=== PATIENT | male | born 1950 | race Caucasian/White ===

== ENCOUNTER 2017-04-14 14:38 | Observation (INO) | payer OTHER, MEDICAID ==
--- NOTE | 2017-04-14 15:01 | DR.GENAD ---
HPI - PCP Primary Care Physician: rebecca - Complaint/Symptoms Chief Complaint Doctors Comments: Patient presents with complaint of burning of chest (chest pain) burning of the upper extremity (pain) and back. He states that he took one NTG with some relief but the pain is still a 10. He admits to cardiac surgery with stents x 6, abdominal aortic artery surgery, left carotid surgery. He has atherosclerotic heart disease. Chief Complaint:: patient stated for the last hour he has been having burning in his chest, burning in both arms and legs with a headache. - Source History Provided: Patient - Mode of Arrival Mode of Arrival: Ambulatory - Timing Onset of Chief Complaint: 04/14/17 PMH - PMH Past Medical History: Yes Past Medical History: COPD, Hypertension, [place] Past Surgical History: Yes Surgical History: CABG/Valve Surgery, Cholecystectomy - Family History History of Family Medical Conditions: Yes Family Medical History: Coronary Artery Disease, Hypertension - Social History Does patient currently use any type of tobacco product: No Have you used tobacco products in the last 12 months: No Type of Tobacco Use: None Does any household member use tobacco: Yes Alcohol Use: None Do you use any recreational Drugs:: No Lives With: Family Lives Where: Home - infectious screening In the last 2 months have you had wt loss of >10#?: NO Have you had fever, night sweats or hemotysis?: No Have you traveled outside the country in the last 6 months?: No Isolation: Standard ROS - Review of Systems Eyes: No Symptoms Reported ENTM: No Symptoms Reported Respiratoy: No Symptoms Reported Cardiovascular: Chest Pain Gastrointestinal/Abdominal: No Symptoms Reported Genitourinary: No Symptoms Reported Neurological: No Symptoms Reported Musculoskeletal: No Symptoms Reported Integumentary: No Symptoms Reported Hematologic/Lymphatic: No Symptoms Reported Endocrine: No Symptoms Reported Psychiatric: No Symptoms Reported All Other Systems: Reviewed and Negative PE - Vital Signs Vitals: Temperature 98.7 F Pulse Rate [Apical] 62 Pulse Rate 74 Respiratory Rate 22 Blood Pressure [Left Arm] 108/53 Blood Pressure 149/65 O2 Sat by Pulse Oximetry 95 - General Limitations: No Limitations General Appearance: Alert - Head Head Exam: Normal Inspection, Atraumatic - Eyes Eye exam: Normal Appearance, PERRL, EOMI - ENT ENT Exam: Normal Exam External Ear Exam: Normal External Inspection TM/Canal Exam: Bilateral Normal Nose Exam: Normal Nose Exam Mouth Exam: Normal Inspection Throat Exam: Normal Inspection - Neck Neck Exam: Normal Inspection - Chest Chest Inspection: Normal Inspection - Respiratory Respiratory Exam: Normal Lung Sounds Bilat Respiratory Exam: Bilateral Clear to Auscultation - Cardiovascular Cardiovascular Exam: Regular Rate, Normal Rhythm - Abdominal Exam Abdominal Exam: Normal Inspection Abdominal Tenderness: negative: RUQ, RLQ, LUQ, LLQ, Epigastrium, Suprapubic, Diffuse, Mild, Moderate, Severe, Other - Extremities Extremities Exam: Normal Inspection, Full ROM - Back Back Exam: Normal Inspection, Full ROM - Neurologic Neurological Exam: Alert, Oriented X3, CN II-XII Intact - Psychiatric Psychiatric Exam: Normal Affect, Normal Mood - Skin Skin Exam: Warm, Dry, Intact Course - Treatment Treatment: Patient chest pain was resolved by 3rd NTG - Reevaluation 1st: Improved - Consultation Called: 16:25 (Dr Ann agreed to admit for chest pain protocol) ROR - Labs Reviewed Result Diagrams: 04/14/17 15:17 04/14/17 15:17 Laboratory: WBC 10.0 X10^3/uL (3.6-10.0) 04/14/17 15:17 RBC 4.21 X10^6/uL (4.7-6.0) L 04/14/17 15:17 Hgb 12.2 g/dL (13.5-18.0) L 04/14/17 15:17 Hct 36.5 % (42.0-54.0) L 04/14/17 15:17 MCV 86.7 fL (80.0-100.0) 04/14/17 15:17 MCH 29.1 pg (27.0-34.0) 04/14/17 15:17 MCHC 33.5 g/dL (33.0-35.0) 04/14/17 15:17 RDW 14.8 % (11.6-16.5) 04/14/17 15:17 Plt Count 171 X10^3/uL (150.0-450.0) 04/14/17 15:17 MPV 8.6 fL (7.4-11.0) 04/14/17 15:17 Neut % 64.0 % (42.0-75.0) 04/14/17 15:17 Lymph % 25.5 % (21.0-51.0) 04/14/17 15:17 [place] % 8.0 % (0.0-13.0) 04/14/17 15:17 Eos % 1.7 % (0.9-2.9) 04/14/17 15:17 Baso % 0.8 % (0.2-1.0) 04/14/17 15:17 Neut # 6.4 x10^3/uL (2.2-4.8) H 04/14/17 15:17 Lymph # 2.5 X10^3/uL (1.3-2.9) 04/14/17 15:17 [place] # 0.8 x10^3/uL (0.3-0.8) 04/14/17 15:17 Eos # 0.2 x10^3/uL (0.0-0.2) 04/14/17 15:17 Baso # 0.1 X10^3/uL (0.0-0.1) 04/14/17 15:17 Absolute Nucleated RBC 0.0 /100WBC 04/14/17 15:17 INR Target Range - 04/14/17 15:17 INR 0.97 (0.8-1.3) 04/14/17 15:17 PTT 34.0 SECONDS (22.9-36.5) 04/14/17 15:17 PTT Comment - 04/14/17 15:17 Sodium 136 mmol/L (136-145) 04/14/17 15:17 Corrected Sodium TNP 04/14/17 15:17 Potassium 4.8 mmol/L (3.5-5.1) 04/14/17 15:17 Chloride 104 mmol/L (98-107) 04/14/17 15:17 Carbon Dioxide 27.3 mmol/L (21-32) 04/14/17 15:17 BUN 22 mg/dL (7-18) H 04/14/17 15:17 Creatinine 1.69 mg/dL (0.70-1.30) H 04/14/17 15:17 Est GFR (MDRD) Af Amer 52 (>60) L 04/14/17 15:17 Est GFR (MDRD) Non-Af 43 (>60) L 04/14/17 15:17 Glucose 97 mg/dL (65-99) 04/14/17 15:17 Calcium 9.1 mg/dL (8.5-10.1) 04/14/17 15:17 Corrected Calcium TNP 04/14/17 15:17 Magnesium 1.9 mg/dL (1.7-2.9) 04/14/17 15:17 Total Bilirubin 0.40 mg/dL (0.2-1.0) 04/14/17 15:17 AST 15 Units/L (15-37) 04/14/17 15:17 ALT 13 Units/L (12-78) 04/14/17 15:17 Alkaline Phosphatase 61 Units/L (46-116) 04/14/17 15:17 Creatine Kinase 47 Units/L (39-308) 04/14/17 15:17 CK-MB (CK-2) 1.8 ng/mL (0-4.0) 04/14/17 15:17 CK/CKMB % Calc 3.8 % (<4) 04/14/17 15:17 Troponin I 0.02 ng/mL (0-1.5) 04/14/17 15:17 Total Protein 7.0 g/dL (6.4-8.2) 04/14/17 15:17 Albumin 3.6 g/dL (3.4-5.0) 04/14/17 15:17 Globulin 3.4 g/dL (2.5-4.5) 04/14/17 15:17 Albumin/Globulin Ratio 1.1 Ratio (1.1-2.1) 04/14/17 15:17 - XRAY XRAY Interpreted by: Radiologist (Chest: mild hyperinflation on acute abnormality, Chest; s/p CABG and mild cardiomegaly) - Diagnosis Discharge Problem: Chest pain Qualifiers: Chest pain type: unspecified Qualified Code(s): R07.9 - Chest pain, unspecified - Discharge Plan Condition: Stable - Follow ups/Referrals Follow ups/Referrals: BITA JENNINGS [Primary Care Provider] - 3 days - Instructions
[2017-04-14] MEDS ORDERED: NITROSTAT SL PRN (15:04)
[2017-04-14] MEDS ORDERED: ASPIRIN ONE (15:09)
[2017-04-14] MEDS ORDERED: ASPIRIN 81 MG CHEWTAB ONE (15:12)
[2017-04-14] MEDS ORDERED: ASPIRIN 81 MG CHEWTAB PO ONE (15:17)
[2017-04-14] MEDS: NS 1000 ML 1,000 ML IV SCH ×2 (15:19→22:52)
[2017-04-14] MEDS ORDERED: PHENERGAN INJ 25 MG ONE (15:23)
[2017-04-14] MEDS ORDERED: PHENERGAN INJ 25 MG IV ONE (15:23)
[2017-04-14] MEDS ORDERED: MORPHINE SULFATE INJ 4 MG IVP ONE (15:24)
[2017-04-14] MEDS ORDERED: MORPHINE SULFATE INJ 4 MG ONE (15:24)
[2017-04-14 15:27] LABS: BASOPHILS # (AUTO) 0.1 X10^3/uL (0.0-0.1); BASOPHILS % (AUTO) 0.8 % (0.2-1.0); EOSINOPHILS # (AUTO) 0.2 x10^3/uL (0.0-0.2); EOSINOPHILS % (AUTO) 1.7 % (0.9-2.9); HEMATOCRIT 36.5 % (42.0-54.0); HEMOGLOBIN 12.2 g/dL (13.5-18.0); LYMPHOCYTES # (AUTO) 2.5 X10^3/uL (1.3-2.9); LYMPHOCYTES % (AUTO) 25.5 % (21.0-51.0); MEAN CORPUSCULAR HEMOGLOBIN 29.1 pg (27.0-34.0); MEAN CORPUSCULAR HGB CONC 33.5 g/dL (33.0-35.0); MEAN CORPUSCULAR VOLUME 86.7 fL (80.0-100.0); MEAN PLATELET VOLUME 8.6 fL (7.4-11.0); MONOCYTES # (AUTO) 0.8 x10^3/uL (0.3-0.8); NEUTROPHILS # (AUTO) 6.4 x10^3/uL (2.2-4.8); PLATELET COUNT 171 X10^3/uL (150.0-450.0); RED BLOOD COUNT 4.21 X10^6/uL (4.7-6.0); RED CELL DISTRIBUTION WIDTH 14.8 % (11.6-16.5)
--- NOTE | 2017-04-14 15:28 | RAD ---
Indication: Chest pain Exam: Portable chest Comparison: None. Findings: The heart is borderline enlarged. The pulmonary vessels are normal. Postop changes are seen along the mediastinum and sternum. There is a left pacemaker in place in good position. No consolida tion or effusion is seen. The bones are intact. Impression: Status post CABG surgery and mild cardiomegaly. Mild hyperinflation with no acute pulmonary abnormality. Reported By:
[2017-04-14 15:52] LABS: BLOOD UREA NITROGEN 22 mg/dL (7-18); CALCIUM 9.1 mg/dL (8.5-10.1); CARBON DIOXIDE 27.3 mmol/L (21-32); CHLORIDE 104 mmol/L (98-107); CREATININE 1.69 mg/dL (0.70-1.30); SODIUM 136 mmol/L (136-145); TROPONIN I 0.02 ng/mL (0-1.5); eGFR BLACK RACES 52 (>60); eGFR NON BLACK RACES 43 (>60)
[2017-04-14 15:57] LABS: ALANINE AMINOTRANSFERASE 13 Units/L (12-78); ALBUMIN 3.6 g/dL (3.4-5.0); ALKALINE PHOSPHATASE 61 Units/L (46-116); ASPARTATE AMINO TRANSFERASE 15 Units/L (15-37); CKMB % 3.8 % (<4); CREATINE KINASE 47 Units/L (39-308); CREATINE KINASE MB 1.8 ng/mL (0-4.0); MAGNESIUM 1.9 mg/dL (1.7-2.9)
[2017-04-14] MEDS ORDERED: ASPIRIN PO SCH (16:00)
[2017-04-14] MEDS ORDERED: NITRODUR PATCH 0.4 MG/HR TD ONE (16:15)
[2017-04-14] MEDS ORDERED: TORADOL TAB PO PRN (17:10)
[2017-04-14] MEDS ORDERED: NORCO 5/325 MG TAB PO PRN (17:10)
[2017-04-14] MEDS ORDERED: AUGMENTIN 875 MG/125 MG TAB PO SCH (18:00)
[2017-04-14 18:48] VITALS: BMI 26.0
[2017-04-14] MEDS ORDERED: ZOFRAN INJ 4 MG VIAL IVP PRN (19:36)
[2017-04-14] MEDS ORDERED: PHENERGAN INJ 25 MG IV PRN (20:02)
[2017-04-14 21:41] LABS: CKMB % 3.8 % (<4); CREATINE KINASE MB 1.4 ng/mL (0-4.0); TROPONIN I 0.03 ng/mL (0-1.5)
[2017-04-15 04:03] LABS: CKMB % 3.5 % (<4); CREATINE KINASE MB 1.2 ng/mL (0-4.0); TROPONIN I 0.02 ng/mL (0-1.5)
[2017-04-15] MEDS ORDERED: AUGMENTIN 875 MG/125 MG TAB PO SCH (06:00)
--- NOTE | 2017-04-15 06:51 | RAD ---
History: Chest pain Study: Portable AP chest new Comparison: Yesterday Findings: The heart size is prominent status post old coronary artery bypass grafting surgery with un changed defibrillator wires via the left subclavian vein. The lungs are hyperinflated and grossly eliel ar. There is central peribronchial thickening. There is no obvious effusion. Impression: Unchanged mild cardiomegaly and apparent COPD Reported By:
[2017-04-15] MEDS ORDERED: PLAVIX PO SCH (09:00)
[2017-04-15] MEDS ORDERED: LIPITOR TAB 40 MG PO SCH (09:00)
[2017-04-15] MEDS ORDERED: TOPROL XL PO SCH (09:00)
[2017-04-15] MEDS ORDERED: NexIUM PO SCH (09:00)
[2017-04-15] MEDS ORDERED: MONOKET or IMDUR PO SCH (09:00)
[2017-04-15] MEDS: NS 1000 ML 1,000 ML IV SCH (09:02)
[2017-04-15 11:35] VITALS: BP 174/78
--- NOTE | 2017-04-16 20:18 | DR.CARTERS ---
Short Stay Summary - Short Stay Summary for: Short Stay Summary for Date of:: 04/15/17 - Admission Date Date of Admission: 04/14/17 - Discharge Date Discharge Date: 04/15/17 - Admission Diagnoses (1) Chest pain Status: Acute - Hospital Course Hospital Course: is a 66 year old patient of ours who presented to the emergency room with reports of chest pain and headache. Patient reports symptoms started earlier today. Patient described pain as a burning to chest, left upper extremity and back. Patient rates pain to head and left arm as a 10/10. Patient states he took Nitroglycerin at home with some relief however reports pain is still rated as a 10/10. He admits to cardiac surgery with stents x 6, abdominal aortic artery surgery, left carotid surgery. He has a history significant for atherosclerotic heart disease. On arrival, vitals were 98.7, 74 , 16, 98% RA, 149/65. Labs were obtained. Abnormal lab values include the following: Abnormal Labs: RBC 4.21, Hgb 12.2, Hct 36.5, BUN 22, Creatinine 1.69 , GFR af 52, GFR non 43, Creatine Kinase 37. EKG reports: Sinus Rhythm. Rate= 62. Chest X-Ray reports: Status post CABG surgery and mild cardiomegaly. Mild hyperinflation with no acute pulmonary abnormality. We admitted patient to the hospital for further treatment and evaluation for dehydration, hypokalemia, generalized weakness, and to rule out acute NE. He was started on Normal saline at 125ml/hr, Nitrostat 0.4mg SL Q5min PRN, NS @125ml/hr, [place] 5/325mg po Q6hr PRN, Toradol 10mg po Q8hr PRN, Zofran 4mg IV Q6hr PRN, Phenergan 12.5mg IV Q6hr , Augmentin 875/125mg po Q8hr. We will obtain serial cardiac enzymes and EKGs. Otherwise, we will follow up with AM labs and continue to monitor patient. On the morning following admission, patient is alert and oriented, lying in bed on morning rounds. He denies chest pain or weakness on morning rounds. On examination, heart is regular in rate and rhythm. Bilateral lungs are noted with diminished lung sounds throughout. Abdomen is round, soft, and non-tender with normal bowel sounds noted in all quadrants. There is normal bowel sounds noted in all quadrants. Her vitals this morning are 97.9, 61, 17, 96%, 148/65. Cardiac enzymes are within normal limits. Most recent EKG reports sinus rhythm with HR 60. A chest xray was obtained today and reported unchanged mild cardiomegaly and apparent COPD. We planned for discharge. Instructions for medications and follow up were discussed with patient and family. They verbalized understanding. He is encouraged to follow up with , wildlife veterinarian within the next week. He also has instructions to follow up in the office on 04/21/17 for follow-up. Patient discharge in stable condition with family. - Discharge Medications Discharge Medications: Albuterol Neb 2.5MG/ 3Ml [ALBUTEROL NEB 2.5MG/ 3ML *] 1 dose INH Q8H 04/14/17 [ History] Albuterol Sulfate [Proair Respiclick] 2 puff INH Q4H PRN 04/14/17 [History] Amlodipine Besylate [NORVASC 5 MG *] 1 tab PO DAILY 04/14/17 [History] Aspirin [ASPIRIN 325 MG *] 1 tab PO DAILY 04/14/17 [History] Atorvastatin Calcium 1 tab PO HS 04/14/17 [History] Carvedilol [COREG TAB 3.125 MG *] 1 tab PO BID 04/14/17 [History] Citalopram 20 mg Tab [CELEXA 20 MG *] 1 tab PO DAILY 04/14/17 [History] Clopidogrel Bisulfate [PLAVIX TAB 75 MG *] 1 tab PO DAILY 04/14/17 [History] Cyclobenzaprine HCl [FLEXERIL 10 MG *] 1 tab PO TID 04/14/17 [History] Eplerenone 1 tab PO DAILY 04/14/17 [History] Esomeprazole Magnesium [NEXIUM 40 MG *] 1 tab PO BID 04/14/17 [History] Ezetimibe [ZETIA 10 MG *] 1 tab PO DAILY 04/14/17 [History] Fluticasone Nasal [place] [FLONASE NASAL SPRAY *] 1 spr ENOSTRIL DAILY 04/14/17 [ History] Fluticasone-Salmeterol 250/50 [ADVAIR DISKUS 250/50 60-DOSE *] 1 puff IN BID 08/24 [History] Furosemide [LASIX TAB 20 MG *] 1 tab PO DAILY 04/14/17 [History] Gabapentin [NEURONTIN CAP 300 mg *] 1 tab PO TID 04/14/17 [History] Lisinopril [ZESTRIL *] 5 mg PO BID 04/14/17 [History] Nitroglycerin Sublingual [NITROSTAT SUBLING TAB 0.4 MG *] 1 tab SL Q3M PRN 04/14 [History] Oxycodone HCl/Acetaminophen [Percocet 7.5-325 mg Tablet] 1 tab PO Q6H PRN [History] Pregabalin [LYRICA 75 MG *] 1 tab PO BID 04/14/17 [History] Tiotropium [place] Monohydrate [SPIRIVA HANDIHALER (30 DOSE) *] 1 cap INH DAILY 04/14/17 [History] Amoxicillin & Pot Clavulanate [AUGMENTIN TAB 875 mg/125 mg *] 1 ea PO BID #20 tab 04/15/17 [Rx] - Discharge Plan Disposition: 01 HOME, SELF-CARE Condition: Stable Prescriptions: Amoxicillin & Pot Clavulanate [AUGMENTIN TAB 875 mg/125 mg *] 1 ea PO BID #20 tab - Follow up/Referrals Follow up/Referrals: ROQUE MARTI, CAFETERIA OPERATOR NICOLLE [Other] Daniel Ann [Primary Care Provider] - 04/21/17 10:10 am - Instructions Instructions: Smoking Cessation, Tips for Success, [id number], Chronic Obstructive Pulmonary Disease, [id number], Hypertension, [id number], Chest Pain Observation Additional Instructions: CARDIAC DIET, ACTIVITY TOLERATED. Forms: Patient Portal
== END 2017-04-15 11:40 | disposition home or self-care (01) ==
LOC: ER 14:52 → ICU 17:03 → UNDOADMOB 17:03
PROVIDERS: ADMIT Internal Medicine; ATTEND Internal Medicine
DX: R07.89 Other chest pain (principal); I25.2 Old myocardial infarction; Z95.1 Presence of aortocoronary bypass graft; I51.7 Cardiomegaly; E86.0 Dehydration; E87.6 Hypokalemia; R53.1 Weakness
CPT/HCPCS: 36415; 71045; 80053; 80061; 82550; 82553; 83735; 84484; 85025; 85610; 85730; 93005; 96365; 96367; 96374; 96375; 99284; 99285; A4216; A4222; G0378; J2270; J2405; J2550

== ENCOUNTER 2017-12-23 06:15 | Observation (INO) ==
[2017-12-23] MEDS ORDERED: NITROSTAT SL PRN (06:28)
[2017-12-23 06:29] VITALS: BMI 26.2
[2017-12-23] MEDS ORDERED: DUONEB 0.5 MG/3 MG ONE (06:31)
--- NOTE | 2017-12-23 06:33 | DR.CP ---
HPI Time Seen Time Seen by Provider: 12/23/17 06:24 PCP Primary Care Physician: NFD Complaint Chief Complaint Doctor Comments: Patient presents with complaint of chest pain left side one prior to being seen. He admits to cardiac surgery with pacemaker. Pain is 8/10, sharp. s/p NTG pain 2/10. Son reports that his heart treatment has been maximized. Chief Complaint:: PT C/O CP S/O ABOUT 1 HOUR AGO WHILE AT REST Source History Provided: Patient and Parent Mode of Arrival Mode of Arrival: In Arms Timing Onset of Chief Complaint: 12/23/17 Came on: Suddenly Location Chest Pain Radiation Location: None Associated Signs and Symptoms Associated Signs and Symptoms: Shortness of Breath PMH PMH Past Medical History: Yes Past Medical History: COPD, Hypertension and [place] Past Surgical History: Yes Surgical History: CABG/Valve Surgery, Cholecystectomy and Other Past Surgical History Comment: PACE/DIFEMMY Family History History of Family Medical Conditions: Yes Family Medical History: Coronary Artery Disease and Hypertension Social History Type of Tobacco Use: Cigarettes Does any household member use tobacco: Yes Alcohol Use: None Do you use any recreational Drugs:: No Lives With: Family Lives Where: Home infectious screening In the last 2 months have you had wt loss of >10#?: NO Have you had fever, night sweats or hemotysis?: No Have you traveled outside the country in the last 6 months?: No Isolation: Standard PE Vitals Vitals: Temperature 99 F Pulse Rate [Apical] 58 Pulse Rate 59 Respiratory Rate 19 Blood Pressure [Left Arm] 152/72 Blood Pressure 128/61 O2 Sat by Pulse Oximetry 90 General Limitations: No Limitations General Appearance: Alert and In No Apparent Distress Head Head Exam: Normal Inspection, Atraumatic and Normocephalic Eyes Eye exam: Normal Appearance, PERRL and EOMI ENT ENT Exam: Normal Exam, Normal Oropharynx, Mucous Membranes Moist and TM's Normal Bilaterally Chest Chest Inspection: Normal Inspection and Symmetric Chest Wall Rise Respiratory Respiratory Exam: Normal Lung Sounds Bilat and Accessory Muscle Use Respiratory Exam: Bilateral: Clear to Auscultation Cardiovascular Cardiovascular Exam: Normal Rhythm Edema: Normal Abdominal Exam Abdominal Exam: Normal Inspection and Normal Bowel Sounds; negative Distention and Tenderness Extremities Extremities Exam: Normal Inspection and Full ROM Back Back Exam: Normal Inspection and Full ROM Neurologic Neurological Exam: Alert, Oriented X3 and CN II-XII Intact Psychiatric Psychiatric Exam: Normal Affect, Normal Mood, Anxious and Flat Affect; negative Depressed, Manic, Homicidal Ideation, Suicidal Ideation and Other Skin Skin Exam: Warm, Dry, Intact and Normal Color COURSE Consultation Called: 08:00 Consultation Comments: Dr. Bowman agreed to admit for further evaluation ROR Labs Reviewed Laboratory Results Reviewed?: Yes Result Diagrams: 12/23/17 06:40 12/23/17 06:40 Laboratory: WBC 10.2 X10^3/uL (3.6-10.0) H 12/23/17 06:40 RBC 4.32 X10^6/uL (4.7-6.0) L 12/23/17 06:40 Hgb 12.8 g/dL (13.5-18.0) L 12/23/17 06:40 Hct 37.9 % (42.0-54.0) L 12/23/17 06:40 MCV 87.8 fL (80.0-100.0) 12/23/17 06:40 MCH 29.7 pg (27.0-34.0) 12/23/17 06:40 MCHC 33.8 g/dL (33.0-35.0) 12/23/17 06:40 RDW 15.1 % (11.6-16.5) 12/23/17 06:40 Plt Count 184 X10^3/uL (150.0-450.0) 12/23/17 06:40 MPV 8.2 fL (7.4-11.0) 12/23/17 06:40 Neut % (Auto) 70.1 % (42.0-75.0) 12/23/17 06:40 Lymph % (Auto) 20.8 % (21.0-51.0) L 12/23/17 06:40 [place] % (Auto) 8.2 % (0.0-13.0) 12/23/17 06:40 Eos % (Auto) 0.7 % (0.9-2.9) L 12/23/17 06:40 Baso % (Auto) 0.2 % (0.2-1.0) 12/23/17 06:40 Neut # (Auto) 7.2 x10^3/uL (2.2-4.8) H 12/23/17 06:40 Lymph # (Auto) 2.1 X10^3/uL (1.3-2.9) 12/23/17 06:40 [place] # (Auto) 0.8 x10^3/uL (0.3-0.8) 12/23/17 06:40 Eos # (Auto) 0.1 x10^3/uL (0.0-0.2) 12/23/17 06:40 Baso # (Auto) 0.0 X10^3/uL (0.0-0.1) 12/23/17 06:40 Absolute Nucleated RBC 0.0 /100WBC 12/23/17 06:40 D-Dimer 1940 ng/mL (0-400) H* 12/23/17 06:40 Sodium 142 mmol/L (136-145) 12/23/17 06:40 Corrected Sodium TNP 12/23/17 06:40 Potassium 5.0 mmol/L (3.5-5.1) 12/23/17 06:40 Chloride 109 mmol/L (98-107) H 12/23/17 06:40 Carbon Dioxide 26.2 mmol/L (21-32) 12/23/17 06:40 BUN 31 mg/dL (7-18) H 12/23/17 06:40 Creatinine 1.73 mg/dL (0.70-1.30) H 12/23/17 06:40 Est GFR (MDRD) Af Amer 51 (>60) L 12/23/17 06:40 Est GFR (MDRD) Non-Af 42 (>60) L 12/23/17 06:40 Glucose 93 mg/dL (65-99) 12/23/17 06:40 Calcium 8.7 mg/dL (8.5-10.1) 12/23/17 06:40 Corrected Calcium 9.5 mg/dL (8.5-10.1) 12/23/17 06:40 Magnesium 2.2 mg/dL (1.7-2.9) 12/23/17 06:40 Total Bilirubin 0.30 mg/dL (0.2-1.0) 12/23/17 06:40 AST 46 Units/L (15-37) H 12/23/17 06:40 ALT 32 Units/L (12-78) 12/23/17 06:40 Alkaline Phosphatase 73 Units/L (46-116) 12/23/17 06:40 Creatine Kinase 47 Units/L (39-308) 12/23/17 06:40 CK-MB (CK-2) 1.6 ng/mL (0-4.0) 12/23/17 06:40 CK/CKMB % Calc 3.4 % (<4) 12/23/17 06:40 Troponin I 0.03 ng/mL (0-1.5) 12/23/17 06:40 Total Protein 6.1 g/dL (6.4-8.2) L 12/23/17 06:40 Albumin 3.0 g/dL (3.4-5.0) L 12/23/17 06:40 Globulin 3.1 g/dL (2.5-4.5) 12/23/17 06:40 Albumin/Globulin Ratio 1.0 Ratio (1.1-2.1) L 12/23/17 06:40 Other Results Comments: Chest: Chronic mild cardiomegaly. Acute interstitial edema
[2017-12-23] MEDS: NS 1000 ML 1,000 ML IV SCH ×2 (06:35→20:40)
[2017-12-23] MEDS ORDERED: DUONEB 0.5 MG/3 MG NEB ONE ×2 (06:38→06:50)
--- NOTE | 2017-12-23 06:56 | RAD ---
History: Chest pain Study: AP chest Comparison: April 15, 2017 Findings: There is unchanged cardiomegaly status post CABG. There is an intact defibrillator wire via the left subclavian vein. The lungs are hyperinflated with chronic interstitial changes. However there is some new Angel B-yordan es. There is no obvious pleural effusion. Impression: 1. Chronic mild cardiomegaly 2. Acute interstitial edema Reported By:
[2017-12-23] MEDS ORDERED: PHENERGAN INJ 25 MG IV ONE (07:04)
[2017-12-23] MEDS ORDERED: PHENERGAN INJ 25 MG ONE ×2 (07:05→14:05)
[2017-12-23 07:18] LABS: BLOOD UREA NITROGEN 31 mg/dL (7-18); CALCIUM 8.7 mg/dL (8.5-10.1); CARBON DIOXIDE 26.2 mmol/L (21-32); CHLORIDE 109 mmol/L (98-107); CREATININE 1.73 mg/dL (0.70-1.30); SODIUM 142 mmol/L (136-145); TROPONIN I 0.03 ng/mL (0-1.5); eGFR NON BLACK RACES 42 (>60)
[2017-12-23 07:23] LABS: ALANINE AMINOTRANSFERASE 32 Units/L (12-78); ALKALINE PHOSPHATASE 73 Units/L (46-116); ASPARTATE AMINO TRANSFERASE 46 Units/L (15-37); CKMB % 3.4 % (<4); COR CA(FOR HYPOALB) 9.5 mg/dL (8.5-10.1); CREATINE KINASE 47 Units/L (39-308); CREATINE KINASE MB 1.6 ng/mL (0-4.0); MAGNESIUM 2.2 mg/dL (1.7-2.9); TOTAL PROTEIN 6.1 g/dL (6.4-8.2)
[2017-12-23 07:32] LABS: BASOPHILS % (AUTO) 0.2 % (0.2-1.0); EOSINOPHILS # (AUTO) 0.1 x10^3/uL (0.0-0.2); EOSINOPHILS % (AUTO) 0.7 % (0.9-2.9); HEMATOCRIT 37.9 % (42.0-54.0); HEMOGLOBIN 12.8 g/dL (13.5-18.0); LYMPHOCYTES # (AUTO) 2.1 X10^3/uL (1.3-2.9); LYMPHOCYTES % (AUTO) 20.8 % (21.0-51.0); MEAN CORPUSCULAR HEMOGLOBIN 29.7 pg (27.0-34.0); MEAN CORPUSCULAR HGB CONC 33.8 g/dL (33.0-35.0); MEAN CORPUSCULAR VOLUME 87.8 fL (80.0-100.0); MEAN PLATELET VOLUME 8.2 fL (7.4-11.0); MONOCYTES # (AUTO) 0.8 x10^3/uL (0.3-0.8); MONOCYTES % (AUTO) 8.2 % (0.0-13.0); NEUTROPHILS # (AUTO) 7.2 x10^3/uL (2.2-4.8); NEUTROPHILS % (AUTO) 70.1 % (42.0-75.0); PLATELET COUNT 184 X10^3/uL (150.0-450.0); RED BLOOD COUNT 4.32 X10^6/uL (4.7-6.0); RED CELL DISTRIBUTION WIDTH 15.1 % (11.6-16.5); WHITE BLOOD COUNT 10.2 X10^3/uL (3.6-10.0)
[2017-12-23] MEDS: LASIX IVP SCH (09:32)
[2017-12-23] MEDS ORDERED: PATIENT'S HOME MEDICATION (Oxycodone-Acetaminophen [Percocet] 1 TAB) PO PRN (09:35)
[2017-12-23] MEDS ORDERED: ATIVAN TAB 0.5 MG PO PRN (09:35)
[2017-12-23] MEDS ORDERED: PERCOCET TAB 5/325 MG PO PRN (10:03)
[2017-12-23 12:52] LABS: CKMB % 3.2 % (<4); CREATINE KINASE MB 1.5 ng/mL (0-4.0); TROPONIN I 0.05 ng/mL (0-1.5)
[2017-12-23 13:17] LABS: ABG BASE EXCESS 1.3 mmol/L (-2.0-2.0); ABG HCO3 26.6 mmol/L (22-26); FRACTIONATED INSPIRED OXYGEN 28
--- NOTE | 2017-12-23 13:33 | DR.H&P ---
H&P - History & Physical for Day of: H&P Date: 12/23/17 - Chief Complaint Chief Complaint: SOB, CP - History of Present Illness History of Present Illness: 66WM ER ADMISSION AFTER PRESENTIN WITH CO CHEST PAIN, LEFT UPPER CHEST, PT STATES "I THINK ITS MY BREATHING" PT HAS HX CAD WITH BYPASS X2 AND STENT PLACEMENT, DEBRILLATOR AND PACE MAKER PRESENT. PT SEES DR MARTI IN [place]. PT HAD COPD WITH USE OF JET NEBS WITHOUT IMRPOVEMENT. PT STATES HE STILL IS DAILY CIGARETTE SMOKER - Past Medical History Past Medical History: Arthritis, Asthma, COPD, Coronary Artery Disease, GERD, Hypertension, [place], Renal Disease - Past Surgical History Surgical History: CABG/Valve Surgery, Cholecystectomy, Other - Family History Family Medical History: Coronary Artery Disease, Hypertension - Social History Does patient currently use any type of tobacco product: Yes Have you used tobacco products in the last 12 months: Yes Type of Tobacco Use: Cigarettes How many years tobacco product used: 50 Does any household member use tobacco: Yes Alcohol Use: None Drug Use: None - Medications Home Medications: No Known Drug Allergies Allergy (Verified 04/14/17 14:40) CONTINUE taking the following medications atorvastatin 80 mg PO DAILY 12/23/17 [History] carvedilol [Coreg] 3.125 mg PO BID 12/23/17 [History] citalopram [Celexa] 20 mg PO DAILY 12/23/17 [History] clopidogrel [Plavix] 75 mg PO DAILY 12/23/17 [History] eplerenone 25 mg PO DAILY 12/23/17 [History] esomeprazole magnesium [Nexium] 40 mg PO DAILY 12/23/17 [History] ezetimibe 10 mg PO DAILY 12/23/17 [History] fluticasone 1 inh INTRANASAL DAILY 12/23/17 [History] fluticasone-salmeterol [Advair Diskus] 1 puff INHALATION BID 12/23/17 [History] gabapentin [Neurontin] 300 mg PO TID 12/23/17 [History] lisinopril 5 mg PO BID 12/23/17 [History] lorazepam 0.5 mg PO BID PRN 12/23/17 [History] mirtazapine 15 mg PO HS 12/23/17 [History] oxycodone-acetaminophen [Percocet] 10 - 325 mg PO TID PRN 12/23/17 [History] sotalol 80 mg PO BID 12/23/17 [History] - Review of Systems Constitutional: Weakness Eyes: No Symptoms Reported ENT: Nose Congestion Respiratory: Shortness of Breath, SOB with Excertion, Sputum, Wheezing Cardiovascular: Chest Pain. denies: Edema Gastrointestinal: Nausea, Vomiting (WITH THICK SPUTUM PRODUCTION). denies: Diarrhea, Constipation Genitourinary: No Symptoms Reported Musculoskeletal: Back Pain, Leg Pain Skin: Ecchymosis Neurological: Weakness. denies: Confusion - Physical Exam Vital Signs: Temperature 97.8 F Pulse Rate [Apical] 58 Pulse Rate 52 Respiratory Rate 15 Blood Pressure [Left Arm] 152/72 Blood Pressure 98/46 O2 Sat by Pulse Oximetry 99 Oriented: Normal Eyes: Blurred Vision (CHRONIC LEFT EYE BLINDNESS) Ear: Normal Nose: Normal Throat: Dry Respiratory: Rhonchi Throughout, Wheezes Throughout, RLL Diminished, LLL Diminished Cardiovascular: Normal, Other (PACER, DEFIBRILATOR IMPLANT PRESENT). negative: Edema : Normal Auscultation: Bowel Sounds: Normal Palpation: Normal Tenderness: Epigastric, Mild Musculoskeletal: Right, Left, Leg, Back:Lumbar, Sensory Deficit Psychiatric: Anxiety Affect: Anxious Speech Pattern: Clear, Appropriate - Assessment/Plan (1) Chest pain Status: Acute Plan: ADMIT ICU, R/O AMI. CONTINUE CARDIAC MONTIORING, SERIAL CE AND EKGS. SUPPLEMENTAL O2. RESP THERAPY, IV LEVAQUIN. TREATMENT OF COPD EXACERBATION, SPUTUM CULTURES, IV STEROIDS. BP CONTROL, VERIFY HOME MEDS. NICOTINE PATCH, AM CXR I& OS (2) COPD (chronic obstructive pulmonary disease) with acute bronchitis Status: Acute (3) CAD (coronary artery disease) Status: Acute (4) Renal insufficiency Status: Acute (5) PAD (peripheral artery disease) Status: Acute (6) GERD (gastroesophageal reflux disease) Status: Acute (7) Elevated d-dimer Status: Acute - Allergies Allergies/Adverse Reactions: Allergies Allergy/AdvReac Type Severity Reaction Status Date / Time No Known Drug Allergies Allergy Verified 04/14/17 14:40
[2017-12-23] MEDS: NEURONTIN CAP 300 MG PO SCH ×2 (13:35→21:14)
[2017-12-23] MEDS: LEVAQUIN PREMIX IV 500 MG 500 MG/100 ML BAG IV SCH (13:35)
[2017-12-23] MEDS: SOLU-Medrol 40 MG VIAL IVP SCH ×3 (13:36→21:14)
[2017-12-23] MEDS: PROTONIX INJ 40 MG VIAL IVP SCH (13:37)
[2017-12-23] MEDS: PERCOCET TAB 5/325 MG PO PRN ×2 (14:14→20:30)
[2017-12-23] MEDS: PHENERGAN INJ 25 MG IV PRN (14:24)
[2017-12-23] MEDS ORDERED: PROVENTIL NEB TX 0.083% 2.5MG/ 3ML NEB PRN (14:31)
[2017-12-23] MEDS ORDERED: LEVSIN/MAALOX/LIDOC VISC PO PRN (15:07)
[2017-12-23 19:26] LABS: CKMB % 3.3 % (<4); CREATINE KINASE MB 1.6 ng/mL (0-4.0); TROPONIN I 0.05 ng/mL (0-1.5)
[2017-12-23] MEDS: NICOTINE PATCH TD SCH (20:40)
[2017-12-23] MEDS: BETAPACE AF PO SCH (20:40)
[2017-12-23] MEDS: COREG TAB 3.125 MG PO SCH (20:40)
[2017-12-23] MEDS: ZESTRIL TAB 5 MG PO SCH (20:41)
[2017-12-23] MEDS: DUONEB 0.5 MG/3 MG NEB SCH (20:45)
[2017-12-23] MEDS: PULMICORT NEB TX 0.5 MG NEB SCH (20:45)
[2017-12-24] MEDS: PERCOCET TAB 5/325 MG PO PRN ×2 (03:13→09:00)
[2017-12-24] MEDS: PHENERGAN INJ 25 MG IV PRN (03:15)
[2017-12-24] MEDS ORDERED: CHLORASEPTIC SPRAY MT PRN (05:07)
[2017-12-24] MEDS: NEURONTIN CAP 300 MG PO SCH ×2 (06:06→13:53)
[2017-12-24 06:23] LABS: BASOPHILS % (AUTO) 0.1 % (0.2-1.0); HEMATOCRIT 35.5 % (42.0-54.0); HEMOGLOBIN 11.9 g/dL (13.5-18.0); LYMPHOCYTES # (AUTO) 0.8 X10^3/uL (1.3-2.9); LYMPHOCYTES % (AUTO) 8.9 % (21.0-51.0); MEAN CORPUSCULAR HEMOGLOBIN 29.3 pg (27.0-34.0); MEAN CORPUSCULAR HGB CONC 33.6 g/dL (33.0-35.0); MEAN CORPUSCULAR VOLUME 87.4 fL (80.0-100.0); MEAN PLATELET VOLUME 8.2 fL (7.4-11.0); MONOCYTES # (AUTO) 0.4 x10^3/uL (0.3-0.8); MONOCYTES % (AUTO) 4.5 % (0.0-13.0); NEUTROPHILS # (AUTO) 7.7 x10^3/uL (2.2-4.8); NEUTROPHILS % (AUTO) 86.5 % (42.0-75.0); PLATELET COUNT 149 X10^3/uL (150.0-450.0); RED BLOOD COUNT 4.06 X10^6/uL (4.7-6.0); RED CELL DISTRIBUTION WIDTH 14.7 % (11.6-16.5); WHITE BLOOD COUNT 8.9 X10^3/uL (3.6-10.0)
[2017-12-24 06:32] LABS: ALANINE AMINOTRANSFERASE 72 Units/L (12-78); ALBUMIN 2.7 g/dL (3.4-5.0); ALKALINE PHOSPHATASE 82 Units/L (46-116); ASPARTATE AMINO TRANSFERASE 63 Units/L (15-37); BLOOD UREA NITROGEN 30 mg/dL (7-18); CALCIUM 8.6 mg/dL (8.5-10.1); CARBON DIOXIDE 23.8 mmol/L (21-32); CHLORIDE 109 mmol/L (98-107); COR CA(FOR HYPOALB) 9.6 mg/dL (8.5-10.1); COR NA(FOR HYPERGLY) 142 mmol/L (136-145); CREATININE 1.39 mg/dL (0.70-1.30); SODIUM 141 mmol/L (136-145); TOTAL PROTEIN 5.7 g/dL (6.4-8.2); eGFR NON BLACK RACES 54 (>60)
[2017-12-24] MEDS: SOLU-Medrol 40 MG VIAL IVP SCH ×2 (07:10→07:16)
[2017-12-24] MEDS ORDERED: SOLU-Medrol 40 MG VIAL ONE (07:12)
[2017-12-24] MEDS: PROTONIX INJ 40 MG VIAL IVP SCH (08:49)
[2017-12-24] MEDS: COREG TAB 3.125 MG PO SCH (08:50)
[2017-12-24] MEDS: LASIX IVP SCH (08:50)
[2017-12-24] MEDS: ZESTRIL TAB 5 MG PO SCH (08:51)
[2017-12-24] MEDS: LEVAQUIN PREMIX IV 500 MG 500 MG/100 ML BAG IV SCH (08:52)
[2017-12-24] MEDS: NICOTINE PATCH TD SCH (08:52)
[2017-12-24] MEDS: BETAPACE AF PO SCH (08:52)
[2017-12-24] MEDS ORDERED: FLONASE NASAL SPRAY ENOSTRIL SCH (09:00)
[2017-12-24] MEDS ORDERED: LIPITOR TAB 40 MG PO SCH (09:00)
[2017-12-24] MEDS ORDERED: PLAVIX PO SCH (09:00)
[2017-12-24] MEDS ORDERED: EPLERENONE PO SCH (09:00)
[2017-12-24] MEDS ORDERED: CELEXA PO SCH (09:00)
[2017-12-24] MEDS ORDERED: NexIUM PO SCH (09:00)
[2017-12-24] MEDS ORDERED: ZETIA TAB 10 MG PO SCH (09:00)
--- NOTE | 2017-12-24 09:10 | RAD ---
History: Chest pain Study: AP chest Comparison: Yesterday Findings: The heart remains mildly enlarged status post CABG with an unchanged defibrillator wire via the left subclavian vein. The lungs are clear. There is no edema or effusion. Interstitial edema has resolved. Impression: 1. Resolution of vascular congestion and interstitial edema 2. Persistent mild cardiomegaly Reported By:
[2017-12-24] MEDS: PULMICORT NEB TX 0.5 MG NEB SCH (09:33)
[2017-12-24] MEDS: DUONEB 0.5 MG/3 MG NEB SCH (09:33)
[2017-12-24] MEDS: MORPHINE SULFATE INJ 2 MG INJ IVP PRN ×2 (11:32→14:03)
[2017-12-24 12:39] VITALS: BP 126/59
--- NOTE | 2017-12-24 12:42 | NM ---
History: Chest pain. Elevated D-dimer. Shortness of breath. Study: Nuclear medicine ventilation perfusion lung scan. Technique: A ventilation perfusion lung scan was performed using 5.5 mCi technetium 99m MAA for the perfusion portion of the scan, and 30.3 mCi technetium 99m DTPA aerosol for the ventilation portion o f the scan. Comparison: December 24, 2017 Findings: There is no evidence of segmental or subsegmental filling defects on the perfusion portion of this examination. There is no evidence of ventilation perfusion mismatch defect in either lung. IMPRESSION: Low probability for pulmonary embolism by modified PIOPED criteria. Reported By:
--- NOTE | 2017-12-24 14:50 | RAD ---
SHOULDER RADIOGRAPHS CLINICAL HISTORY: 66-year-old male with left shoulder pain. COMPARISON: Chest radiograph 12/23/2017. FINDINGS: 5 views of the left shoulder were obtained. There is no acute fracture. The alignment is n ormal. The glenohumeral and acromioclavicular joints are congruent. Mild degenerative changes AC andrey nt. There is no aggressive bone lesion or abnormal periosteal reaction. There is no soft tissue calc ification or gas. The left lung apex is clear. Left chest AICD and postsurgical changes from CABG ar e stable. IMPRESSION: No acute fracture or malalignment of the left shoulder. Mild degenerative changes AC joint. Reported By:
--- NOTE | 2018-01-08 05:45 | PCM.DCPLAN ---
Discharge Summary - Admission Date Date of Admission: 12/23/17 - Discharge Date Discharge Date: 12/24/17 - Admission Diagnoses (1) CAD (coronary artery disease) Status: Acute (2) COPD (chronic obstructive pulmonary disease) with acute bronchitis Status: Acute (3) Chest pain Status: Acute (4) Elevated d-dimer Status: Acute (5) Renal insufficiency Status: Acute - Discharge Diagnoses Discharge Diagnosis: SAME ADMISSION DIAGNOSIS CP RULED OUT ACUTE LA - Discharge Medications Discharge Medications: Home Medication List atorvastatin 80 mg PO DAILY 12/23/17 [History] carvedilol [Coreg] 3.125 mg PO BID 12/23/17 [History] citalopram [Celexa] 20 mg PO DAILY 12/23/17 [History] clopidogrel [Plavix] 75 mg PO DAILY 12/23/17 [History] eplerenone 25 mg PO DAILY 12/23/17 [History] esomeprazole magnesium [Nexium] 40 mg PO DAILY 12/23/17 [History] ezetimibe 10 mg PO DAILY 12/23/17 [History] fluticasone 1 inh INTRANASAL DAILY 12/23/17 [History] fluticasone-salmeterol 1 puff INHALATION BID 12/23/17 [History] gabapentin [Neurontin] 300 mg PO TID 12/23/17 [History] lisinopril 5 mg PO BID 12/23/17 [History] lorazepam 0.5 mg PO BID PRN 12/23/17 [History] mirtazapine 15 mg PO HS 12/23/17 [History] oxycodone-acetaminophen [Percocet] 10 - 325 mg PO TID PRN 12/23/17 [History] sotalol 80 mg PO BID 12/23/17 [History] atorvastatin 80 mg PO DAILY tab 12/24/17 [Rx] Prescriptions: - Hospital Course Vital Signs: Temperature 98.0 F Pulse Rate [Apical] 58 Pulse Rate 66 Respiratory Rate 30 Blood Pressure [Left Arm] 152/72 Blood Pressure 126/59 O2 Sat by Pulse Oximetry 99 Latest Lab Results: Laboratory Last Values WBC 8.9 X10^3/uL (3.6-10.0) 12/24/17 05:33 RBC 4.06 X10^6/uL (4.7-6.0) L 12/24/17 05:33 Hgb 11.9 g/dL (13.5-18.0) L 12/24/17 05:33 Hct 35.5 % (42.0-54.0) L 12/24/17 05:33 MCV 87.4 fL (80.0-100.0) 12/24/17 05:33 MCH 29.3 pg (27.0-34.0) 12/24/17 05:33 MCHC 33.6 g/dL (33.0-35.0) 12/24/17 05:33 RDW 14.7 % (11.6-16.5) 12/24/17 05:33 Plt Count 149 X10^3/uL (150.0-450.0) L 12/24/17 05:33 MPV 8.2 fL (7.4-11.0) 12/24/17 05:33 Neut % (Auto) 86.5 % (42.0-75.0) H 12/24/17 05:33 Lymph % (Auto) 8.9 % (21.0-51.0) L 12/24/17 05:33 Hunt % (Auto) 4.5 % (0.0-13.0) 12/24/17 05:33 Eos % (Auto) 0.0 % (0.9-2.9) L 12/24/17 05:33 Baso % (Auto) 0.1 % (0.2-1.0) L 12/24/17 05:33 Neut # (Auto) 7.7 x10^3/uL (2.2-4.8) H 12/24/17 05:33 Lymph # (Auto) 0.8 X10^3/uL (1.3-2.9) L 12/24/17 05:33 Hunt # (Auto) 0.4 x10^3/uL (0.3-0.8) 12/24/17 05:33 Eos # (Auto) 0.0 x10^3/uL (0.0-0.2) 12/24/17 05:33 Baso # (Auto) 0.0 X10^3/uL (0.0-0.1) 12/24/17 05:33 Absolute Nucleated RBC 0.0 /100WBC 12/24/17 05:33 D-Dimer 1940 ng/mL (0-400) H* 12/23/17 06:40 Sample Site Right brachial 12/23/17 13:02 ABG pH 7.390 (7.35-7.45) 12/23/17 13:02 ABG pCO2 44.0 mmHg (35.0-45.0) 12/23/17 13:02 ABG pO2 118.0 mmHg (80.0-100.0) H 12/23/17 13:02 ABG HCO3 26.6 mmol/L (22-26) H 12/23/17 13:02 ABG O2 Saturation 99.0 % (90-100) 12/23/17 13:02 ABG Base Excess 1.3 mmol/L (-2.0-2.0) 12/23/17 13:02 Bita Test Na 12/23/17 13:02 A-a Gradient 27.0 mmHg 12/23/17 13:02 FiO2 28 12/23/17 13:02 Blood Gas Comments Cathie well aw 12/23/17 13:02 Sodium 141 mmol/L (136-145) 12/24/17 05:33 Corrected Sodium 142 mmol/L (136-145) 12/24/17 05:33 Potassium 4.5 mmol/L (3.5-5.1) 12/24/17 05:33 Chloride 109 mmol/L (98-107) H 12/24/17 05:33 Carbon Dioxide 23.8 mmol/L (21-32) 12/24/17 05:33 BUN 30 mg/dL (7-18) H 12/24/17 05:33 Creatinine 1.39 mg/dL (0.70-1.30) H 12/24/17 05:33 Est GFR (MDRD) Af Amer > 60 (>60) 12/24/17 05:33 Est GFR (MDRD) Non-Af 54 (>60) L 12/24/17 05:33 Glucose 147 mg/dL (65-99) H 12/24/17 05:33 Calcium 8.6 mg/dL (8.5-10.1) 12/24/17 05:33 Corrected Calcium 9.6 mg/dL (8.5-10.1) 12/24/17 05:33 Magnesium 2.2 mg/dL (1.7-2.9) 12/23/17 06:40 Total Bilirubin 0.20 mg/dL (0.2-1.0) 12/24/17 05:33 AST 63 Units/L (15-37) H 12/24/17 05:33 ALT 72 Units/L (12-78) 12/24/17 05:33 Alkaline Phosphatase 82 Units/L (46-116) 12/24/17 05:33 Creatine Kinase 48 Units/L (39-308) 12/23/17 18:51 CK-MB (CK-2) 1.6 ng/mL (0-4.0) 12/23/17 18:51 CK/CKMB % Calc 3.3 % (<4) 12/23/17 18:51 Troponin I 0.05 ng/mL (0-1.5) 12/23/17 18:51 Total Protein 5.7 g/dL (6.4-8.2) L 12/24/17 05:33 Albumin 2.7 g/dL (3.4-5.0) L 12/24/17 05:33 Globulin 3.0 g/dL (2.5-4.5) 12/24/17 05:33 Albumin/Globulin Ratio 0.9 Ratio (1.1-2.1) L 12/24/17 05:33 Hospital Course: 66WM ER ADMISSION AFTER PRESENTING WITH CO CHEST PAIN, LEFT UPPER CHEST, PT STATES "I THINK ITS MY BREATHING" PT HAS HX CAD WITH BYPASS X2 AND STENT PLACEMENT, DEBRILLATOR AND PACE MAKER PRESENT. PT SEES DR MARTI IN [place]. PT HAD COPD WITH USE OF JET NEBS WITHOUT IMPROVEMENT AT HOME. PT STATES HE STILL IS DAILY CIGARETTE SMOKER. PATIENT WAS ADMITTED. CARDIAC ENZYMES AND EKGS WERE MONITORED. PATIENT WAS GIVEN NEBS, ANTIBIOTICS. PATIENT HAD IMPROVEMENT OF SYMPTOMS AND WAS DISCHARGED HOME TO BE FOLLOWED ON OP BASIS. - Discharge Plan Disposition: 01 HOME, SELF-CARE Condition: Stable - Follow ups/Referrals Follow ups/Referrals: BITA JENNINGS [Primary Care Provider] - 12/25/17 12:15 pm - Instructions Instructions: Chronic Obstructive Pulmonary Disease Exacerbation, [id number], Steps to Quit Smoking, [id number], Chest Wall Pain, [id number], Hypertension, [id number] Forms: Patient Portal
== END 2017-12-24 16:30 | disposition home or self-care (01) ==
LOC: ER 06:17 → ICU 06:17
PROVIDERS: ADMIT Internal Medicine; ATTEND Internal Medicine
DX: M25.512 Pain in left shoulder; I73.9 Peripheral vascular disease, unspecified; J44.1 Chronic obstructive pulmonary disease with (acute) exacerbation; I10 Essential (primary) hypertension; R07.89 Other chest pain; J20.8 Acute bronchitis due to other specified organisms; R94.31 Abnormal electrocardiogram [ECG] [EKG]; N28.9 Disorder of kidney and ureter, unspecified; R06.02 Shortness of breath; R79.1 Abnormal coagulation profile; Z95.0 Presence of cardiac pacemaker; K21.9 Gastro-esophageal reflux disease without esophagitis; Z79.899 Other long term (current) drug therapy; R94.4 Abnormal results of kidney function studies
CPT/HCPCS: 36415; 36600; 71010; 71045; 73030; 78582; 80053; 82550; 82553; 82803; 83735; 84484; 85025; 85378; 87070; 87205; 93005; 93010; 94640; 96365; 96367; 96374; 99284; A4222; C9113; G0378; J1940; J1956; J2270; J2550; J2920; J7030; J7613; J7620; J7626